=== PATIENT | female | born 1990 | race Caucasian/White ===

== ENCOUNTER 2025-03-27 21:24 | Emergency (ER) | payer MEDICAID ==
[~2025-03-27] VITALS: Ht 157.5 cm; Wt 74.0 kg
[2025-03-27 22:24] LABS: BASOPHILS % 0.3 % (0.0-2.0); EOSINOPHILS % 0.9 % (0.0-5.0); HEMATOCRIT. 28.4 % (36.0-48.0); HEMOGLOBIN. 9.8 g/dL (12.0-16.0); LYMPHOCYTES % 17.1 % (20.0-50.0); MEAN PLATELET VOLUME 8.5 fl (7.4-10.4); MONOCYTES % 6.3 % (2.0-8.0); NEUTROPHILS % 75.4 % (40.0-76.0); PLATELET 305 x1000/uL (130-400); RED BLOOD CELL COUNT 3.17 mill/uL (4.2-5.4); RED CELL DISTRIBUTION WIDTH 13.5 % (11.6-14.6)
[2025-03-27 22:34] LABS: HCG SCREEN POSITIVE
[2025-03-27 22:35] LABS: INR 0.9
[2025-03-27 22:38] LABS: CREATININE 0.5 mg/dL (0.6-1.0); UREA NITROGEN BLOOD 10 mg/dL (9-23)
[2025-03-27 22:43] LABS: ASPARTATE AMINOTRANSFERASE 15 IU/L (<34)
[2025-03-27 22:44] LABS: BILIRUBIN DIRECT < 0.1 mg/dL (<=3.0); BILIRUBIN TOTAL 0.3 mg/dL (0.1-1.0); PROTEIN TOTAL 6.0 g/dL (6.0-8.3)
[2025-03-27 22:54] VITALS: O2SAT 99
[2025-03-27 22:58] LABS: B-HCG QUANTITATIVE 13497 mIU/mL (<6)
[2025-03-27 23:10] VITALS: BP 114/81; PULSE 102; RESP 18; TEMP 37.2; O2SAT 97
[2025-03-28 00:23] LABS: CLARITY URINE CLEAR (CLEAR); COLOR URINE YELLOW (YELLOW); GLUCOSE URINE NEGATIVE (NEGATIVE); KETONES URINE 1+ (NEGATIVE); LEUKOCYTE ESTERASE URINE NEGATIVE (NEGATIVE); NITRITE URINE NEGATIVE (NEGATIVE); OCCULT BLOOD URINE NEGATIVE (NEGATIVE); PH URINE 6.0 (4.5-8.0); PROTEIN URINE 2+ (NEGATIVE); SPECIFIC GRAVITY URINE 1.024 (1.005-1.030); UROBILINOGEN URINE 0.2 E.U./dL (0.2-1.0)
[2025-03-28 00:41] LABS: SQUAMOUS EPITHELIAL CELL URINE FEW /lpf (RARE/1+)
[2025-03-28 00:42] LABS: BACTERIA URINE NONE SEEN; RBC URINE 0-2 /hpf (0-2)
== END 2025-03-27 23:23 | disposition short-term general hospital (02) ==
LOC: ER 21:24
DX: O26.893 Other specified pregnancy related conditions, third trimester (principal); R10.9 Unspecified abdominal pain; Z3A.29 29 weeks gestation of pregnancy; R10.20 Pelvic and perineal pain unspecified side; Z79.899 Other long term (current) drug therapy
CPT/HCPCS: 36415; 76815; 80048; 80076; 81003; 81025; 83735; 84702; 84703; 85025; 86850; 86900; 99285